=== PATIENT | female | born 1990 | race Caucasian/White ===

== ENCOUNTER 2023-03-10 20:44 | Emergency (ER) | payer OTHER, SELFPAY ==
[2023-03-10] VITALS (9 sets, daily range): BP systolic 125–184; BP diastolic 71–105; PULSE 93–124; RESP 16–30; TEMP 36.5; O2SAT 91–100; BMI 38.3
--- NOTE | 2023-03-10 20:55 | ECG_ITS ---
APPROVED REPORT Exam: Resting ECG HR:100 bpm ECG Measurements Heart Rate 100 AXES NV 160 P 40 QRSd 101 QRS 35 QT 395 T 3 QTc 452 Conclusion SINUS TACHYCARDIA NONSPECIFIC T-WAVE ABNORMALITY ABNORMAL RHYTHM ECG UNCONFIRMED REPORT Electronically signed by : Rambo Hussein MD 03/15/2023 09:11:04
--- NOTE | 2023-03-10 21:29 | PC.NURSE ---
in room talking with patient at this time.
--- NOTE | 2023-03-10 21:33 | XR_ITS ---
PROCEDURE INFORMATION: Exam: XR Chest Exam date and time: 03/10/2023 10:14 PM Age: 33 years old Clinical indication: Cough TECHNIQUE: Imaging protocol: Radiologic exam of the chest. Views: 1 view. COMPARISON: No relevant prior studies available. FINDINGS: Lungs: Unremarkable. No consolidation. Pleural spaces: Unremarkable. No pleural effusion. No pneumothorax. Heart/Mediastinum: Unremarkable. No cardiomegaly. Bones/joints: Unremarkable. IMPRESSION: No acute findings. No infiltration is seen.
--- NOTE | 2023-03-10 21:33 | CT_ITS ---
PROCEDURE INFORMATION: Exam: CTA Chest With Contrast Exam date and time: 03/10/2023 10:24 PM Age: 33 years old Clinical indication: Shortness of breath; Additional info: SOB, subacute cough, tachy TECHNIQUE: Imaging protocol: Computed tomographic angiography of the chest with contrast. Exam focused on the arteries. 3D rendering (Not supervised by radiologist): MIP and/or 3D reconstructed images were created by the technologist. Radiation optimization: All CT scans at this facility use at least one of these dose optimization techniques: automated exposure control; mA and/or kV adjustment per patient size (includes targeted exams where dose is matched to clinical indication); or iterative reconstruction. Contrast material: ISOVUE; Contrast volume: 75 ml; Contrast route: INTRAVENOUS (IV); REPORTING DATA: Count of CT and Cardiac NM exams in prior 12 months: This patient has received 0 known CTs and 0 known cardiac nuclear medicine studies in the 12 months prior to the current study. COMPARISON: CR XR CHEST PORTABLE 03/10/2023 10:14 PM FINDINGS: Pulmonary arteries: Normal. No pulmonary emboli. Aorta: Unremarkable. No aortic aneurysm. No aortic dissection. Lungs: Unremarkable. No consolidation. No masses. Pleural spaces: Unremarkable. No pneumothorax. No pleural effusion. Heart: Unremarkable. No cardiomegaly. No pericardial effusion. Lymph nodes: Unremarkable. No enlarged lymph nodes. Bones/joints: Unremarkable. No acute fracture. Soft tissues: Unremarkable. IMPRESSION: No acute findings.
[2023-03-10 21:40] LABS: VBG Base Excess -3.5 mmol/L (-2.4-2.3); VBG HCO3 18.9 mmol/L (23-30); VBG Oxygen Saturation 72.9 % (50-70); VBG Total CO2 19.6 mmol/L (23-27)
[2023-03-10 21:40] LABS: Basophils # 0.1 K/mm3 (0-0.2); Eosinophils # 0.2 K/mm3 (0.0-0.4); Hematocrit 40.6 % (37.0-47.0); Hemoglobin 13.7 g/dL (12.2-16.2); Lymphocytes # 3.6 K/mm3 (0.7-4.5); Lymphocytes % 30.1 % (10-50); Mean Corpuscular HGB Conc 33.7 g/dL (31.8-35.4); Mean Corpuscular Hemoglobin 29.4 pg (27.0-31.2); Mean Corpuscular Volume 87.4 fl (81-99); Mean Platelet Volume 8.7 fl (7.4-10.4); Monocytes # 0.6 K/mm3 (0.1-1.0); Monocytes % 4.7 % (1.7-9.3); Neutrophils # 7.3 K/mm3 (1.8-7.8); Neutrophils % 62.3 % (37.0-80.0); Platelet Count 383 K/mm3 (142-424); Red Blood Count 4.64 M/mm3 (4.20-5.40); Red Cell Distribution Width 13.4 % (11.5-17.5); White Blood Count 11.8 K/mm3 (4.8-10.8)
[2023-03-10 21:43] LABS: VBG PCO2 22.2 mmol/L (35-51); VBG PH 7.55 mmol/L (7.31-7.41)
--- NOTE | 2023-03-10 21:44 | ED_ITS ---
Discharge Plan Disposition Patient Disposition: Home, Self-Care Prescriptions Prescriptions: New ondansetron HCl 4 mg tablet 4 mg PO Q8H PRN (Reason: nausea and vomiting) 5 Days Qty: 30 0RF prednisone 50 mg tablet 50 mg PO DAILY 3 Days Qty: 3 0RF No Action atorvastatin 80 mg tablet 80 mg PO DAILY spironolactone 100 mg tablet 100 mg PO DAILY venlafaxine 150 mg capsule,extended release 24hr 150 mg PO DAILY baclofen 20 mg tablet 20 mg PO TID losartan-hydrochlorothiazide 100-25 mg tablet 1 tab PO DAILY Patient Comments: TAKE 1 TABLET BY MOUTH EVERY DAY famotidine 20 mg tablet 20 mg PO DAILY trazodone 100 mg tablet 100 mg PO PM buspirone 10 mg tablet 20 mg PO TID Patient Comments: TAKE 2 TABLET BY MOUTH THREE TIMES DAILY montelukast 10 mg tablet 10 mg PO DAILY albuterol sulfate 90 mcg/actuation HFA aerosol inhaler 2 puff INHALATION DIRECTED kiyjswrqsrabruv-umcncqlbe-UF 2-30-10 mg/5 mL syrup 10 ml PO Q6H PRN (Reason: Cough) metformin 500 mg tablet extended release 24 hr 500 mg PO DAILY loratadine 10 mg tablet 10 mg PO DAILY Patient Comments: TAKE 1 TABLET BY MOUTH ONE TIME EACH DAY Humulin 70/30 U-100 KwikPen 100 unit/mL (70-30) insulin pen 45 unit SQ BID quetiapine 50 mg tablet 50 mg PO DAILY fenofibrate nanocrystallized 145 mg tablet 145 mg PO DAILY Aimovig Autoinjector 140 mg/mL auto-injector 140 mg SQ MONTHLY Ozempic 2 mg/dose (8 mg/3 mL) pen injector 2 mg SQ WEEKLY Referrals Follow up/Referrals: Daily Whitehead [Primary Care Provider] - See instructions Activity Restrictions/Add. Instructions Additional Instructions/Restrictions: Please follow-up with your primary care provider. Please return to the emergency department if you develop any new or worsening symptoms or become concerned for your health. Please take Zofran as needed for nausea and vomiting. Please take steroids for asthma exacerbation. Clinical Impressions Clinical Impression: Asthma with exacerbation, Acute hypokalemia, Vomiting Discharge ED Provider: Pradeep Montana General Adult HPI <Pradeep Montana MD - Last Filed: 03/10/23 23:08> General Chief complaint: Shortness of Breath/Dyspnea Stated complaint: short of breath Time Seen by Provider: 03/10/23 21:01 Mode of Arrival: Wheelchair Source of Information: Patient Limitations: No Limitations Description of Symptoms (Recalled from ER Triage Doc. by RN): pt states was diagnosed with pnemonia 5 days ago and placed on augmentin. Pt c/o SOA for 3 hours now. History of Present Illness HPI narrative: Patient is a 33-year-old female with past medical history of hypertension, multiple antibiotic allergies, some of which are anaphylactic who presents emergency department for evaluation of shortness of breath. Patient was recently diagnosed with pneumonia 5 days ago and started on Augmentin. She has had subacute cough and shortness of breath for 2 weeks. She also has a history of asthma and is not on chronic controlled medications. Due to persistent shortness of breath she presents here for continued evaluation. Related Data Home Medications Medication Instructions Recorded Confirmed albuterol sulfate 90 mcg/actuation 2 puff inhalation DIRECTED 03/10/23 03/10/23 aerosol inhaler atorvastatin 80 mg tablet 80 mg PO DAILY 03/10/23 03/10/23 baclofen 20 mg tablet 20 mg PO TID 03/10/23 03/10/23 [id number]-jlykgugvxrdjszg-HE 10 ml PO Q6H PRN Cough 03/10/23 03/10/23 2 mg-30 mg-10 mg/5 mL oral syrup buspirone 10 mg tablet 20 mg PO TID 03/10/23 03/10/23 erenumab-aooe 140 mg/mL 140 mg SQ MONTHLY 03/10/23 03/10/23 subcutaneous auto-injector (Aimovig Autoinjector) famotidine 20 mg tablet 20 mg PO DAILY 03/10/23 03/10/23 fenofibrate nanocrystallized 145 145 mg PO DAILY 03/10/23 03/10/23 mg tablet insulin NPH-regular 70-30 U-100 45 unit SQ BID 03/10/23 03/10/23 insulin 100 unit/mL subcutaneous pen (Humulin 70/30 U-100 KwikPen) loratadine 10 mg tablet 10 mg PO DAILY 03/10/23 03/10/23 losartan 100 1 tab PO DAILY 03/10/23 03/10/23 mg-hydrochlorothiazide 25 mg tablet metformin 500 mg tablet,extended 500 mg PO DAILY 03/10/23 03/10/23 release 24 hr montelukast 10 mg tablet 10 mg PO DAILY 03/10/23 03/10/23 quetiapine 50 mg tablet 50 mg PO DAILY 03/10/23 03/10/23 semaglutide 2 mg/dose (8 mg/3 mL) 2 mg SQ WEEKLY 03/10/23 03/10/23 subcutaneous pen injector (Ozempic) spironolactone 100 mg tablet 100 mg PO DAILY 03/10/23 03/10/23 trazodone 100 mg tablet 100 mg PO PM 03/10/23 03/10/23 venlafaxine 150 mg 150 mg PO DAILY 03/10/23 03/10/23 capsule,extended release 24 hr Previous Rx's Medication Instructions Recorded ondansetron HCl 4 mg tablet 4 mg PO Q8H PRN nausea and 03/10/23 vomiting 5 days #30 tabs prednisone 50 mg tablet 50 mg PO DAILY 3 days #3 tabs 03/11/23 Allergies Allergy/AdvReac Type Severity Reaction Status Date / Time Sulfa (Sulfonamide Allergy Verified 03/10/23 20:58 Antibiotics) vancomycin Allergy Verified 03/10/23 20:58 NSAIDS (Non-Steroidal AdvReac Severe Verified 03/10/23 23:27 Anti-Inflamma PFSH <Pradeep [place] MD - Last Filed: 03/10/23 23:08> [facility] Disclaimer: The information contained in this section may have been updated after the patient was seen, as this information can be updated by other users. Social History Smoking Status: Never smoker alcohol intake: never current occupational status: unemployed Travel in the last 8 weeks: None <Pradeep [place] MD - Last Filed: 03/10/23 23:08> ROS Obtained: Yes Systems reviewed as appropriate & no additional complaints except as documented Physical Exam <Pradeep [place] MD - Last Filed: 03/10/23 23:08> General General appearance: alert and other (Facial erythema) Head Head exam: atraumatic and normocephalic Eye Eye exam: Present PERRL and EOMI ENT ENT exam: Present mucous membranes moist Neck Neck exam: Present normal inspection Chest Chest inspection: Present normal inspection and symmetric chest wall rise Respiratory Respiratory exam: Present respiratory distress, wheezes, accessory muscle use and prolonged expiratory phase Cardiovascular Cardiovascular exam: Present normal rhythm and tachycardia Abdominal Exam Abdominal exam: Present soft; Absent tenderness Extremities Exam Extremities exam: Present normal inspection Neurological Exam Neurological exam: Present alert Psychiatric Psychiatric exam: Present normal affect Skin Skin exam: Present warm and dry Medical Decision Making <Pradeep [place] MD - Last Filed: 03/10/23 23:08> [facility] Pt receiving controlled substance: No Vital Signs: 03/10/23 20:45 03/10/23 21:16 03/10/23 22:07 Temperature 97.7 F Temperature Source Oral Pulse Rate 93 H 107 H Pulse Rate [Right] 100 H Respiratory Rate 20 30 H Blood Pressure 162/96 H Blood Pressure [Right Arm] 165/85 H Blood Pressure Mean [Right Arm] 111 Blood Pressure Source Blood Pressure Position 02 Sat by Pulse Oximetry 100 100 Oxygen Delivery Method 03/10/23 22:07 03/10/23 21:37 03/10/23 22:00 Temperature Temperature Source Pulse Rate 107 H 124 H 103 H Pulse Rate [Right] Respiratory Rate 26 H 22 Blood Pressure 184/105 H Blood Pressure [Right Arm] Blood Pressure Mean [Right Arm] Blood Pressure Source Blood Pressure Position 02 Sat by Pulse Oximetry 100 100 Oxygen Delivery Method Room Air Room Air 03/10/23 22:37 03/10/23 22:45 03/10/23 23:00 Temperature Temperature Source Pulse Rate 101 H 111 H 106 H Pulse Rate [Right] Respiratory Rate 17 20 22 Blood Pressure 148/84 H 155/91 H 125/71 Blood Pressure [Right Arm] Blood Pressure Mean [Right Arm] Blood Pressure Source Blood Pressure Position 02 Sat by Pulse Oximetry 98 99 93 L Oxygen Delivery Method Room Air Room Air Room Air 03/10/23 23:15 03/11/23 00:54 Temperature 98.1 F Temperature Source Oral Pulse Rate 104 H 108 H Pulse Rate [Right] Respiratory Rate 16 18 Blood Pressure 134/82 145/88 H Blood Pressure [Right Arm] Blood Pressure Mean [Right Arm] Blood Pressure Source Automatic Cuff Blood Pressure Position Sitting 02 Sat by Pulse Oximetry 91 L Oxygen Delivery Method Room Air Room Air Lab Data Lab Results 03/10/23 21:26: WBC 11.8 H, RBC 4.64, Hgb 13.7, Hct 40.6, MCV 87.4, MCH 29.4, MCHC 33.7, RDW 13.4, Plt Count 383, MPV 8.7, Neut % (Auto) 62.3, Lymph % (Auto) 30.1, [place] % (Auto) 4.7, Eos % (Auto) 2.0, Baso % (Auto) 1.0, Neut # (Auto) 7.3, Lymph # (Auto) 3.6, [place] # (Auto) 0.6, Eos # (Auto) 0.2, Baso # (Auto) 0.1, Sodium 135 L, Potassium 3.1 L, Chloride 104, Carbon Dioxide 19 L, Anion Gap 15.1 H, BUN 8, Creatinine 0.60, Estimated Creat Clear 260, Estimated GFR 114, Est GFR ( Amer) 138, Glucose 199 H, Calcium 9.3, Total Bilirubin 0.3, AST 44 H, ALT 42, Alkaline Phosphatase 46, Troponin I < 0.01, Total Protein 7.6, Albumin 4.7, Globulin 2.9, Albumin/Globulin Ratio 1.6, Serum HCG, Qual Negative 03/10/23 21:33: VBG pH 7.55 H, VBG pCO2 22.2 L, VBG pO2 34.0, VBG HCO3 18.9 L, VBG Total CO2 19.6 L, VBG O2 Saturation 72.9 H, VBG Base Excess -3.5 L 03/10/23 22:31: SARS-CoV-2 (PCR) Not detected, Influenza A Untype (PCR) Not detected, Influenza Type B (PCR) Not detected 03/10/23 21:26 03/10/23 21:26 Orders (Tests/Meds): ED MEDICATIONS Generic Name Dose Route Start Last Admin Trade Name Antioneq PRN Reason Stop Dose Admin Ceftriaxone Sodium 1 gm/ 50 mls @ 100 mls/hr 03/10/23 21:45 03/10/23 22:43 Sodium Chloride IV 03/20/23 21:44 100 mls/hr Q24H DAJUAN Administration Azithromycin 500 mg/ Sodium 250 mls @ 250 mls/hr 03/10/23 21:45 03/10/23 22:32 Chloride IV 03/20/23 21:44 250 mls/hr Q24H DAJUAN Administration Sodium Chloride 10 ml 03/10/23 22:30 03/10/23 22:31 Sodium Chloride 0.9% 10ml Syr (Rad Only) IV 04/09/23 22:29 10 ml NEEDED PRN Administration Maintain IV Site Discontinued Medications Generic Name Dose Route Start Last Admin Trade Name Antioneq PRN Reason Stop Dose Admin Albuterol/Ipratropium 9 ml 03/10/23 21:33 03/10/23 22:05 Ipratropium/Albuterol 3 Ml Neb IH 03/10/23 21:34 9 ml ONCE ONE Administration Droperidol 2.5 mg 03/10/23 22:42 03/10/23 22:44 Droperidol 5mg/2ml Vial IV 03/10/23 22:43 2.5 mg ONCE ONE Administration Iopamidol 75 ml 03/10/23 22:30 03/10/23 22:31 Iopamidol-370 (76%);100ml Bottle IV 03/10/23 22:31 75 ml ONCE ONE Administration Methylprednisolone Sodium Succinate 125 mg 03/10/23 21:33 03/10/23 21:50 Methylprednisolone Sod Succ 125mg Vial IV 03/10/23 21:34 125 mg ONCE ONE Administration Potassium Chloride 40 meq 03/11/23 00:49 03/11/23 00:52 Potassium Chloride 20meq Tab PO 03/11/23 00:50 40 meq ONCE ONE Administration ORDERS Category Date Time Status CT angio chest PE protocol Stat Cat Scan 03/10/23 21:33 Completed CXR --portable [XR chest portable] Stat Exams 03/10/23 21:33 Completed CBC w/Auto Diff [Complete Blood Count Auto Diff] Stat Lab 03/10/23 21:26 Completed CMP [Comprehensive Metabolic Panel] Stat Lab 03/10/23 21:26 Completed HCG Qualitative, Serum Stat Lab 03/10/23 21:26 Completed Rapid PCR Covid and Flu A/B Stat Lab 03/10/23 22:31 Completed Trop I [Troponin I] Stat Lab 03/10/23 21:26 Completed Troponin I Q3H Lab 03/11/23 00:45 Ordered Troponin I Q3H Lab 03/11/23 03:45 Ordered Blood Culture Stat Micro 03/10/23 22:10 Received VBG [Venous Blood Gas] Stat RT 03/10/23 21:33 Completed ECG initial [place] Routine Y 03/10/23 20:55 Completed ECG Data Tracing #1: Independently interpreted by me, rate is 100, rhythm is regular, axis is normal, no ST elevation in anatomical contiguous leads, QTc 452. Medical Decision Narrative: In summary patient is a 33-year-old female with past medical history described above presents emergency department for evaluation of shortness of breath and cough. Patient is tachycardic, tachypneic upon arrival. Expiratory phase wheezes on physical exam. Differential includes pneumonia, pulmonary embolism, sepsis, among others. Given the patient has previously tolerated azithromycin and cefdinir with little effect patient will be started on ceftriaxone and azithromycin for empiric coverage for pneumonia. Of note patient has anaphylactic allergy to vancomycin, fluoroquinolones. Hematologic labs to be obtained. Patient will be given 1 L crystalloid resuscitation. DuoNebs x 3 and methylprednisolone will be administered. Workup reviewed by me, hematologic labs are remarkable for mild hypokalemia which will be repleted, remainder of hematologic labs are nonactionable, patient has respiratory alkalosis consistent with her hyperventilation, initial troponin below detectable limit, hCG negative. Upon repeat evaluation patient had significant vomiting for which droperidol will be administered. CTA conducted and shows no acute process, no consolidation, no thromboembolism. Repeat evaluation was pending at time of transfer of care to the oncoming physician, Dr. Fernandez. <Rashawn Fernandez MD - Last Filed: 03/11/23 01:02> Vital Signs: 03/10/23 20:45 03/10/23 21:16 03/10/23 22:07 Temperature 97.7 F Temperature Source Oral Pulse Rate 93 H 107 H Pulse Rate [Right] 100 H Respiratory Rate 20 30 H Blood Pressure 162/96 H Blood Pressure [Right Arm] 165/85 H Blood Pressure Mean [Right Arm] 111 Blood Pressure Source Blood Pressure Position 02 Sat by Pulse Oximetry 100 100 Oxygen Delivery Method 03/10/23 22:07 03/10/23 21:37 03/10/23 22:00 Temperature Temperature Source Pulse Rate 107 H 124 H 103 H Pulse Rate [Right] Respiratory Rate 26 H 22 Blood Pressure 184/105 H Blood Pressure [Right Arm] Blood Pressure Mean [Right Arm] Blood Pressure Source Blood Pressure Position 02 Sat by Pulse Oximetry 100 100 Oxygen Delivery Method Room Air Room Air 03/10/23 22:37 03/10/23 22:45 03/10/23 23:00 Temperature Temperature Source Pulse Rate 101 H 111 H 106 H Pulse Rate [Right] Respiratory Rate 17 20 22 Blood Pressure 148/84 H 155/91 H 125/71 Blood Pressure [Right Arm] Blood Pressure Mean [Right Arm] Blood Pressure Source Blood Pressure Position 02 Sat by Pulse Oximetry 98 99 93 L Oxygen Delivery Method Room Air Room Air Room Air 03/10/23 23:15 03/11/23 00:54 Temperature 98.1 F Temperature Source Oral Pulse Rate 104 H 108 H Pulse Rate [Right] Respiratory Rate 16 18 Blood Pressure 134/82 145/88 H Blood Pressure [Right Arm] Blood Pressure Mean [Right Arm] Blood Pressure Source Automatic Cuff Blood Pressure Position Sitting 02 Sat by Pulse Oximetry 91 L Oxygen Delivery Method Room Air Room Air Lab Data Lab Results 03/10/23 21:26: WBC 11.8 H, RBC 4.64, Hgb 13.7, Hct 40.6, MCV 87.4, MCH 29.4, MCHC 33.7, RDW 13.4, Plt Count 383, MPV 8.7, Neut % (Auto) 62.3, Lymph % (Auto) 30.1, [place] % (Auto) 4.7, Eos % (Auto) 2.0, Baso % (Auto) 1.0, Neut # (Auto) 7.3, Lymph # (Auto) 3.6, [place] # (Auto) 0.6, Eos # (Auto) 0.2, Baso # (Auto) 0.1, Sodium 135 L, Potassium 3.1 L, Chloride 104, Carbon Dioxide 19 L, Anion Gap 15.1 H, BUN 8, Creatinine 0.60, Estimated Creat Clear 260, Estimated GFR 114, Est GFR ( Amer) 138, Glucose 199 H, Calcium 9.3, Total Bilirubin 0.3, AST 44 H, ALT 42, Alkaline Phosphatase 46, Troponin I < 0.01, Total Protein 7.6, Albumin 4.7, Globulin 2.9, Albumin/Globulin Ratio 1.6, Serum HCG, Qual Negative 03/10/23 21:33: VBG pH 7.55 H, VBG pCO2 22.2 L, VBG pO2 34.0, VBG HCO3 18.9 L, VBG Total CO2 19.6 L, VBG O2 Saturation 72.9 H, VBG Base Excess -3.5 L 03/10/23 22:31: SARS-CoV-2 (PCR) Not detected, Influenza A Untype (PCR) Not d etected, Influenza Type B (PCR) Not detected Orders (Tests/Meds): ED MEDICATIONS Generic Name Dose Route Start Last Admin Trade Name Freq PRN Reason Stop Dose Admin Ceftriaxone Sodium 1 gm/ 50 mls @ 100 mls/hr 03/10/23 21:45 03/10/23 22:43 Sodium Chloride IV 03/20/23 21:44 100 mls/hr Q24H DAJUAN Administration Azithromycin 500 mg/ Sodium 250 mls @ 250 mls/hr 03/10/23 21:45 03/10/23 22:32 Chloride IV 03/20/23 21:44 250 mls/hr Q24H DAJUAN Administration Sodium Chloride 10 ml 03/10/23 22:30 03/10/23 22:31 Sodium Chloride 0.9% 10ml Syr (Rad Only) IV 04/09/23 22:29 10 ml NEEDED PRN Administration Maintain IV Site Discontinued Medications Generic Name Dose Route Start Last Admin Trade Name Freq PRN Reason Stop Dose Admin Albuterol/Ipratropium 9 ml 03/10/23 21:33 03/10/23 22:05 Ipratropium/Albuterol 3 Ml Neb IH 03/10/23 21:34 9 ml ONCE ONE Administration Droperidol 2.5 mg 03/10/23 22:42 03/10/23 22:44 Droperidol 5mg/2ml Vial IV 03/10/23 22:43 2.5 mg ONCE ONE Administration Iopamidol 75 ml 03/10/23 22:30 03/10/23 22:31 Iopamidol-370 (76%);100ml Bottle IV 03/10/23 22:31 75 ml ONCE ONE Administration Methylprednisolone Sodium Succinate 125 mg 03/10/23 21:33 03/10/23 21:50 Methylprednisolone Sod Succ 125mg Vial IV 03/10/23 21:34 125 mg ONCE ONE Administration Potassium Chloride 40 meq 03/11/23 00:49 03/11/23 00:52 Potassium Chloride 20meq Tab PO 03/11/23 00:50 40 meq ONCE ONE Administration ORDERS Category Date Time Status CT angio chest PE protocol Stat Cat Scan 03/10/23 21:33 Completed CXR --portable [XR chest portable] Stat Exams 03/10/23 21:33 Completed CBC w/Auto Diff [Complete Blood Count Auto Diff] Stat Lab 03/10/23 21:26 Completed CMP [Comprehensive Metabolic Panel] Stat Lab 03/10/23 21:26 Completed HCG Qualitative, Serum Stat Lab 03/10/23 21:26 Completed Rapid PCR Covid and Flu A/B Stat Lab 03/10/23 22:31 Completed Trop I [Troponin I] Stat Lab 03/10/23 21:26 Completed Troponin I Q3H Lab 03/11/23 00:45 Ordered Troponin I Q3H Lab 03/11/23 03:45 Ordered Blood Culture Stat Micro 03/10/23 22:10 Received VBG [Venous Blood Gas] Stat RT 03/10/23 21:33 Completed ECG initial [place] Routine Y 03/10/23 20:55 Completed Medical Decision Narrative: In summary patient is a 33-year-old female with past medical history described above presents emergency department for evaluation of shortness of breath and cough. Patient is tachycardic, tachypneic upon arrival. Expiratory phase wheezes on physical exam. Differential includes pneumonia, pulmonary embolism, sepsis, among others. Given the patient has previously tolerated azithromycin and cefdinir with little effect patient will be started on ceftriaxone and azithromycin for empiric coverage for pneumonia. Of note patient has anaphylactic allergy to vancomycin, fluoroquinolones. Hematologic labs to be obtained. Patient will be given 1 L crystalloid resuscitation. DuoNebs x 3 and methylprednisolone will be administered. Workup reviewed by me, hematologic labs are remarkable for mild hypokalemia which will be repleted, remainder of hematologic labs are nonactionable, patient has respiratory alkalosis consistent with her hyperventilation, initial troponin below detectable limit, hCG negative. Upon repeat evaluation patient had significant vomiting for which droperidol will be administered. CTA conducted and shows no acute process, no consolidation, no thromboembolism. Repeat evaluation was pending at time of transfer of care to the oncoming physician, Dr. Fernandez. Jim TABARES: I assumed care of the patient at the time of handoff from the prior provider. Patient was placed in observation status at 11 PM to assess the effectiveness of the IV antiemetics and patient's breathing treatments with goal of avoiding potentially unnecessary admission. On reassessment, on my interpretation of plunger shovel operator, patient remains in si nus rhythm with rate in the 90s. Patient reports that she is no longer short of breath and feels much better. No longer nauseous. Patient was given 40 mill equivalents of p.o. potassium and tolerated without difficulty. Given this, patient is appropriate for discharge with outpatient management and does not require admission. She was taken out of observation status at 12:45 AM the next day, total time in observation of 1 hour and 45 minutes. [id number] discussion was had with patient regarding her discharge. Less than 30 minutes of time was spent in preparing this discharge. She was discharged prescription for Zofran as well as short prednisone course for treatment of asthma exacerbation. Critical Care <Pradeep [place] MD - Last Filed: 03/10/23 23:08> Critical Care Time Critical Care Time: No
[2023-03-10 21:45] LABS: Alanine Aminotransferase 42 U/L (12-78); Alkaline Phosphatase 46 U/L (38-126); Aspartate Amino Transferase 44 U/L (14-36); Bilirubin,Total 0.3 mg/dl (0.2-1.3); Blood Urea Nitrogen 8 mg/dl (7-17); Carbon Dioxide 19 mmol/L (22.0-30.0); Chloride 104 mmol/L (98-107); Creatinine Clearance Estimated 260 mL/min (50-200); Estimated Glomerular Filt Rate 114 ml/min (>60); GFR (African American) 138 ML/MIN (>60)
[2023-03-10 21:46] LABS: Albumin Level 4.7 g/dl (3.5-5.0); Albumin/Globulin Ratio 1.6 (1.1-1.8); Calcium 9.3 mg/dl (8.4-10.2); Globulin 2.9 g/dL (1.3-3.2); Glucose 199 mg/dl (74-100); Potassium 3.1 mmoL/L (3.5-5.1); Total Protein,Serum 7.6 g/dl (6.3-8.2)
[2023-03-10 21:48] LABS: HCG Qualitative, Serum Negative (Negative)
[2023-03-10] MEDS: METHYLPREDNISOLONE SOD SUCC 125MG VIAL 125 MG IV (21:50)
[2023-03-10 22:03] LABS: Troponin I < 0.01 ng/ml (0.00-0.034)
[2023-03-10] MEDS: IPRATROPIUM/ALBUTEROL 3 ML NEB 9 ML IH (22:05)
[2023-03-10 22:09] LABS: Anion Gap 15.1 mEq/L (5-15); Sodium 135 mmol/L (136-145)
[2023-03-10] MEDS: IOPAMIDOL-370 (76%);100ML BOTTLE 75 ML IV (22:31)
[2023-03-10] MEDS: SODIUM CHLORIDE 0.9% 10ML SYR (RAD ONLY) 10 ML IV (22:31)
[2023-03-10] MEDS: AZITHROMYCIN 500 MG in 0.9 % SODIUM CHLORIDE 250 ML 250 MG IV (22:32)
[2023-03-10 22:37] LABS: Coronavirus 19, PCR Not Detected (NotDetected); Influenza A, PCR Not Detected (NotDetected); Influenza B, PCR Not Detected (NotDetected)
[2023-03-10] MEDS: CEFTRIAXONE 1 GM 1 GM in 0.9 % SODIUM CHLORIDE 50 ML IV (22:43)
[2023-03-10] MEDS: droPERidol 5MG/2ML VIAL 2.5 MG IV (22:44)
[2023-03-11] MEDS: POTASSIUM CHLORIDE 20MEQ TAB 40 MEQ PO (00:52)
[2023-03-11 00:54] VITALS: BP 145/88; PULSE 108; RESP 18; TEMP 36.7; O2SAT 98
== END 2023-03-11 01:02 | disposition home or self-care (01) ==
PROVIDERS: Emergency Provider Emergency Medicine; PCP Family Medicine
DX: J45.901 Unspecified asthma with (acute) exacerbation (principal); R06.02 Shortness of breath; E87.6 Hypokalemia; E87.3 Alkalosis; R00.0 Tachycardia, unspecified; R11.2 Nausea with vomiting, unspecified; I10 Essential (primary) hypertension; E11.9 Type 2 diabetes mellitus without complications; Z79.4 Long term (current) use of insulin; Z79.84 Long term (current) use of oral hypoglycemic drugs; Z79.85 Long-term (current) use of injectable non-insulin antidiabetic drugs
CPT/HCPCS: 71045; 71275; 80053; 82803; 84484; 84703; 85025; 87040; 87636; 93005; 96365; 96367; 96375; 99285; J0456; J0696; J1790; Q9967

== ENCOUNTER 2023-08-21 17:40 | Emergency (ER) | payer OTHER, SELFPAY ==
[2023-08-21 17:42] VITALS: BP 174/94; PULSE 105; RESP 18; TEMP 37.6; O2SAT 98; BMI 40.4
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
[2023-08-21] MEDS: LACTATED RINGERS 1000ML 1,000 ML 999 ML IV (18:17)
[2023-08-21] MEDS: ACETAMINOPHEN 1,000MG/100ML VIAL 1000 MG IV (18:17)
[2023-08-21 18:40] LABS: Basophils # 0.1 K/mm3 (0-0.2); Basophils % 1.5 % (0.1-2.0); Eosinophils # 0.3 K/mm3 (0.0-0.4); Hematocrit 42.4 % (37.0-47.0); Hemoglobin 14.3 g/dL (12.2-16.2); Lymphocytes # 3.1 K/mm3 (0.7-4.5); Lymphocytes % 33.1 % (10-50); Mean Corpuscular HGB Conc 33.7 g/dL (31.8-35.4); Mean Corpuscular Hemoglobin 29.7 pg (27.0-31.2); Mean Corpuscular Volume 88.1 fl (81-99); Mean Platelet Volume 9.9 fl (7.4-10.4); Monocytes # 0.5 K/mm3 (0.1-1.0); Monocytes % 5.1 % (1.7-9.3); Neutrophils # 5.4 K/mm3 (1.8-7.8); Neutrophils % 57.3 % (37.0-80.0); Platelet Count 332 K/mm3 (142-424); Red Blood Count 4.81 M/mm3 (4.20-5.40); White Blood Count 9.5 K/mm3 (4.8-10.8)
[2023-08-21 18:41] LABS: Chloride 96 mmol/L (98-107); Potassium 3.3 mmoL/L (3.5-5.1); Sodium 132 mmol/L (136-145)
[2023-08-21 18:42] LABS: HCG Qualitative, Serum Negative (Negative)
[2023-08-21 18:43] LABS: Alanine Aminotransferase 41 U/L (12-78); Aspartate Amino Transferase 48 U/L (14-36); Blood Urea Nitrogen 13 mg/dl (7-17); Creatinine Clearance Estimated 329 mL/min (50-200); Estimated Glomerular Filt Rate 141 ml/min (>60); GFR (African American) 171 ML/MIN (>60); Lipase 200 U/L (23-300)
[2023-08-21 18:44] LABS: Albumin Level 4.3 g/dl (3.5-5.0); Albumin/Globulin Ratio 1.3 (1.1-1.8); Alkaline Phosphatase 58 U/L (38-126); Anion Gap 12.3 mEq/L (5-15); Bilirubin,Total 0.7 mg/dl (0.2-1.3); Calcium 9.7 mg/dl (8.4-10.2); Carbon Dioxide 27 mmol/L (22.0-30.0); Globulin 3.2 g/dL (1.3-3.2); Glucose 286 mg/dl (74-100); Total Protein,Serum 7.5 g/dl (6.3-8.2)
--- NOTE | 2023-08-21 18:46 | PC.NURSE ---
PT gone to [facility]
[2023-08-21 18:57] LABS: Microscopic, Urine URINE MICROSCOPIC (MICROSCOPIC)
[2023-08-21] MEDS: IOPAMIDOL-370 (76%);100ML BOTTLE 75 ML IV (19:08)
[2023-08-21] MEDS: SODIUM CHLORIDE 0.9% 10ML SYR (RAD ONLY) 10 ML IV (19:08)
[2023-08-21 19:09] LABS: Appearance,Urine CLEAR (Clear); Bilirubin,Urine Negative (Negative); Blood, Urine Negative (Negative); Color,Urine YELLOW (Yellow); Glucose,Urine (UA) 3+ (Negative); Ketones,Urine TRACE (Negative); Leukocyte Esterase,Urine Negative (Negative); Nitrate,Urine Negative (Negative); Protein,Urine 1+ (Negative); Urobilinogen,Urine 0.2 EU/dl (0.2)
[2023-08-21 19:31] LABS: Bacteria,Urine 1+ /lpf; Squamous Epithelial Cell,Urine Occasional #/hpf (0-5); Yeast,Urine Occasional /lpf
[2023-08-21 20:24] VITALS: BP 112/76; PULSE 73; RESP 15; TEMP 36.8; O2SAT 98
== END 2023-08-21 20:28 | disposition home or self-care (01) ==
PROVIDERS: Physician Assistant; Emergency Provider Emergency Medicine; PCP Family Medicine
DX: S39.91XA Unspecified injury of abdomen, initial encounter (principal); R10.84 Generalized abdominal pain; E87.1 Hypo-osmolality and hyponatremia; E87.6 Hypokalemia; R73.9 Hyperglycemia, unspecified; Y00.XXXA Assault by blunt object, initial encounter
CPT/HCPCS: 74177; 80053; 81001; 83690; 84703; 85025; 96361; 96374; 99284; J0131; J7120; Q9967